=== PATIENT | male | born 1965 | race Caucasian/White ===

== ENCOUNTER 2025-03-06 12:55 | Inpatient (IN) | payer OTHER ==
[2025-03-06] MEDS ORDERED: VANCOMYCIN IV PER PHARMACY 1 EACH MISC MISCELLANE PRN (13:14)
--- NOTE | 2025-03-06 13:18 | ED ---
Skin/Abscess/FB HPI - General Chief complaint: Skin/Abscess/Foreign Body Stated complaint: L leg pain Time Seen by Provider: 03/06/25 13:09 Source: patient, RN notes reviewed Mode of arrival: ambulatory Limitations: no limitations - History of Present Illness Initial comments: 59-year-old male presents emergency department complaint of left leg infection. Patient states that started several weeks ago after a fall. Patient states that he had abrasion hematoma and negative x-rays at that time. Patient states he saw his worsen which he was recently placed on antibiotics and symptoms remained to get worse. He states he is a large area of swelling, bogginess states is uncomfortable and generalized does not feel well. Patient states there has been puslike drainage - Related Data Allergies Allergy/AdvReac Type Severity Reaction Status Date / Time No Known Allergies Allergy Verified 03/06/25 13:08 Review of Systems ROS Statement: Those systems with pertinent positive or pertinent negative responses have been documented in the HPI. ROS Other: All systems not noted in ROS Statement are negative. Past Medical History Past Medical History: No Reported History Past Surgical History: No Surgical Hx Reported Smoking Status: Never smoker Past Alcohol Use History: None Reported Past Drug Use History: None Reported General Exam Limitations: no limitations General appearance: alert, in no apparent distress Head exam: Present: atraumatic, normocephalic, normal inspection Eye exam: Present: normal appearance, PERRL, EOMI. Absent: scleral icterus, conjunctival injection, periorbital swelling ENT exam: Present: normal exam, normal oropharynx, mucous membranes moist Neck exam: Present: normal inspection, full ROM. Absent: tenderness, meningismus, lymphadenopathy Respiratory exam: Present: normal lung sounds bilaterally. Absent: respiratory distress, wheezes, rales, rhonchi, stridor Cardiovascular Exam: Present: regular rate, normal rhythm, normal heart sounds. Absent: systolic murmur, diastolic murmur, rubs, gallop, clicks Extremities exam: Present: other (Left anterior mcelroy region there is a large 6 cm abscess with surrounding erythema encompassing most of the tib-fib region there is tenderness with palpation neurovascular intact) Neurological exam: Present: alert Skin exam: Present: warm, dry, intact, normal color. Absent: rash Course Vital Signs 03/06/25 13:02 Temperature 98.2 F Pulse Rate 93 Respiratory 17 Rate Blood Pressure 154/92 O2 Sat by Pulse 97 Oximetry Medical Decision Making - Medical Decision Making Was pt. sent in by a medical professional or institution (MEENA Ewing, BOX PRINTING MACHINE OPERATOR, urgent care, hospital, or fpc...) When possible be specific @ -Urgent care Did you speak to anyone other than the patient for history (EMS, parent, family, police, friend...)? What history was obtained from this source @ -No Did you review nursing and triage notes (agree or disagree)? Why? @ -I reviewed and agree with nursing and triage notes Were old charts reviewed (outside hosp., previous admission, EMS record, old EKG, old radiological studies, urgent care reports/EKG's, fpc records)? Report findings @ -No old charts were reviewed Differential Diagnosis (chest pain, altered mental status, abdominal pain women, abdominal pain men, vaginal bleeding, weakness, fever, dyspnea, syncope, headache, dizziness, GI bleed, back pain, seizure, CVA, palpatations, mental health, musculoskeletal)? @ -Cellulitis, abscess, EKG interpreted by me (3pts min.). @ -None X-rays interpreted by me (1pt min.). @ -X-ray left tib-fib showing soft tissue swelling CT interpreted by me (1pt min.). @ -None done U/S interpreted by me (1pt. min.). @ -None done What testing was considered but not performed or refused? (CT, X-rays, U/S, labs)? Why? @ -None What meds were considered but not given or refused? Why? @ -None Did you discuss the management of the patient with other professionals (professionals i.e. , MEENA, BOX PRINTING MACHINE OPERATOR, lab, RT, psych nurse, psychiatric social worker, online activist, teacher, precinct commanding officer, medical case worker)? Give summary @ -Dr. Ramon for admission Was smoking cessation discussed for >3mins.? @ -No Was critical care preformed (if so, how long)? @ -No Were there social determinants of health that impacted care today? How? (Homelessness, low income, unemployed, alcoholism, drug addiction, transportation, low edu. Level, literacy, decrease access to med. care, group home, rehab)? @ -No Was there de-escalation of care discussed even if they declined (Discuss DNR or withdrawal of care, Hospice)? DNR status @ -No What co-morbidities impacted this encounter? (DM, HTN, Smoking, COPD, CAD, Cancer, CVA, ARF, Chemo, Hep., AIDS, mental health diagnosis, sleep apnea, m orbid obesity)? @ -None Was patient admitted / discharged? Hospital course, mention meds given and r oute, prescriptions, significant lab abnormalities, going to OR and other pertinent info. @ -Admitted patient has significant abscess, cellulitis patient started on dual antibiotic therapy will have general surgery for drainage. Undiagnosed new problem with uncertain prognosis? @ -No Drug Therapy requiring intensive monitoring for toxicity (Heparin, Nitro, Insulin, Cardizem)? @ -No Were any procedures done? @ -No Diagnosis/symptom? @ -Left leg cellulitis, abscess Acute, or Chronic, or Acute on Chronic? @ -Acute Uncomplicated (without systemic symptoms) or Complicated (systemic symptoms)? @ -Complicated Side effects of treatment? @ -No Exacerbation, Progression, or Severe Exacerbation? @ -No Poses a threat to life or bodily function? How? (Chest pain, [place], [place], pneumonia, PE, COPD, DKA, ARF, appy, cholecystitis, CVA, Diverticulitis, Homicidal, Suicidal, threat to staff... and all critical care pts) @ -No - Lab Data Result diagrams: 03/06/25 13:28 03/06/25 13:28 Lab Results 03/06/25 03/06/25 03/06/25 Range/Units 13:28 13:28 13:28 WBC 9.21 (4.50-10.00) 10*3/uL RBC 5.36 (4.40-5.60) 10*6/uL Hgb 14.0 (13.0-17.0) g/dL Hct 42.5 (39.6-50.0) % MCV 79.3 L (80.0-97.0) fL MCH 26.1 L (27.0-32.0) pg MCHC 32.9 (32.0-37.0) g/dL Plt Count 296 (140-440) 10*3/uL MPV 8.2 L (9.5-12.2) fL Immature Gran % (Auto) 0.9 % Neutrophils % 81.3 % Lymphocytes % 10.5 % Monocytes % 5.6 % Eosinophils % 1.4 % Basophils % 0.3 % Immature Gran # 0.08 H (0.00-0.04) 10*3/uL Neutrophils # 7.48 (1.80-7.70) 10*3/uL Lymphocytes # 0.97 (0.90-5.00) 10*3/uL Monocytes # 0.52 (0.20-1.00) 10*3/uL Eosinophils # 0.13 (0.04-0.35) 10*3/uL Basophils # 0.03 (0.00-0.10) 10*3/uL Sodium 137 (137-145) mmol/L Potassium 3.7 (3.5-5.1) mmol/L Chloride 98 (98-107) mmol/L Carbon Dioxide 24 (22-30) mmol/L Anion Gap 15 mmol/L BUN 15 (9-20) mg/dL Creatinine 0.67 (0.66-1.25) mg/dL Est GFR (CKD-EPI)AfAm >90 (>60 ml/min/1.73 sqM) Est GFR (CKD-EPI)NonAf >90 (>60 ml/min/1.73 sqM) Glucose 158 H (74-99) mg/dL Plasma Lactic Acid Drew 2.0 (0.7-2.0) mmol/L Calcium 9.3 (8.4-10.2) mg/dL Total Bilirubin 1.1 (0.2-1.3) mg/dL AST 135 H (17-59) U/L ALT 244 H (4-49) U/L Alkaline Phosphatase 342 H (38-126) U/L C-Reactive Protein 16.0 H (<1.0) mg/dL Total Protein 7.2 (6.3-8.2) g/dL Albumin 4.1 (3.5-5.0) g/dL Disposition Clinical Impression: Left leg cellulitis, Abscess of leg Disposition: ADMITTED IP TO THIS HOSP Condition: Fair Referrals: None,Stated [REFERRING] - 1-2 days Time of Disposition: 14:48
[2025-03-06 13:36] LABS: Basophils # (A) 0.03 10*3/uL (0.00-0.10); Basophils % (A) 0.3 %; Eosinophils # (A) 0.13 10*3/uL (0.04-0.35); Eosinophils % (A) 1.4 %; HCT 42.5 % (39.6-50.0); Lymphocytes # (A) 0.97 10*3/uL (0.90-5.00); Lymphocytes % (A) 10.5 %; MCH 26.1 pg (27.0-32.0); MCHC 32.9 g/dL (32.0-37.0); MCV 79.3 fL (80.0-97.0); Mean Platelet Volume 8.2 fL (9.5-12.2); Monocytes # (A) 0.52 10*3/uL (0.20-1.00); Monocytes % (A) 5.6 %; Neutrophils # (A) 7.48 10*3/uL (1.80-7.70); Neutrophils % (A) 81.3 %; Platelet Count 296 10*3/uL (140-440); RBC 5.36 10*6/uL (4.40-5.60); RDW 13.6 % (11.5-14.5); WBC 9.21 10*3/uL (4.50-10.00)
[2025-03-06 13:49] LABS: ALT 244 U/L (4-49); AST 135 U/L (17-59); African American GFR (CKD) >90 (>60 ml/min/1.73 sqM); Albumin 4.1 g/dL (3.5-5.0); Alkaline Phosphatase 342 U/L (38-126); Anion Gap 15 mmol/L; Blood Urea Nitrogen 15 mg/dL (9-20); Calcium 9.3 mg/dL (8.4-10.2); Carbon Dioxide 24 mmol/L (22-30); Chloride 98 mmol/L (98-107); Glucose 158 mg/dL (74-99); Non-African American GFR(CKD) >90 (>60 ml/min/1.73 sqM); Potassium 3.7 mmol/L (3.5-5.1); Sodium 137 mmol/L (137-145); Total Bilirubin 1.1 mg/dL (0.2-1.3); Total Protein 7.2 g/dL (6.3-8.2)
--- NOTE | 2025-03-06 13:56 | XR ---
EXAMINATION TYPE: XR tibia fibula LT DATE OF EXAM: 03/06/2025 1:49 PM COMPARISON: None. CLINICAL INDICATION: Male, 59 years old with history of infection, pain TECHNIQUE: 2 view(s) obtained. FINDINGS: Knee joint space is preserved. No acute fracture or dislocation is evident. Ankle appears normal. The re is soft tissue swelling over the mid anterior foreleg. No suspicious cortical erosions evident to suggest underlying osteomyelitis. Three-phase bone scan can be performed for sufficient clinical susp icion. IMPRESSION: 1. No acute osseous abnormality. 2. Superficial soft tissue swelling anterior mid foreleg [facility], , 03/06/2025 1:54 PM
[2025-03-06] MEDS: VANCOMYCIN 1,750 MG in SODIUM CHLORIDE 0.9% 500 ML 500 ML IVPB STA (14:11)
[2025-03-06] MEDS ORDERED: NALOXONE 0.4 MG/ML 1 ML VIAL IV PRN (14:46)
[2025-03-06] MEDS ORDERED: ONDANSETRON 4 MG/2 ML VIAL IVP PRN (14:46)
--- NOTE | 2025-03-06 16:35 | P.HPIM ---
History of Present Illness H&P Date: 03/06/25 Chief Complaint: Left leg infection Patient is a 59 year old male with no significant past medical history presented to the ED with concern for left leg infection. Patient stated that his symptoms started 2 months ago after sustaining a mechanical fall. He fell over metal pi eces. He initially had an abrasion hematoma and negative x-rays at the time. He reports the size of his lesion gradually increased. He he then saw worsening of his symptoms with fluid filled blisters and was placed on topical antibiotics recently. At the time he was also diagnosed with pneumonia as well as ear infection. He was placed on amoxicillin. His leg was wrapped. Today when the wrap was removed he noticed the swelling and bogginess. Associated with that he has puslike drainage. He reports ear ache is better, but is still producing greenish sputum along with coughing. Denies fever, chills, shortness of breath, chest pain, palpitations, abdominal pain, nausea, vomiting, hematuria, dysuria, hematochezia, melena, headache, slurred speech, numbness, tingling, dizziness, lightheadedness, blurred vision, double vision. ED documentation reviewed. In the ED patient was treated with Vancomycin. Vitals on admission T 98.2 F, OH 93 bpm, RR 17, BP 154/92, SpO2 97% on room air Tibia-fibula x-ray shows no acute osseous abnormality, superficial soft tissue swelling anterior mid foreleg Labs on admission show WBC 9.1, hemoglobin 14.0, platelet count 296, sodium 137, potassium 3.7, creatinine 0.67, glucose 158, AST 135, ALT 244, ALP 342, CRP 16 Review of systems: Pertinent positives and negatives as discussed in HPI, a complete review of systems was performed and all other systems are negative Physical examination: Vital signs reviewed General: nontoxic, no distress, appears at stated age Head: atraumatic, normocephalic, symmetric Eyes: EOMI, anicteric sclera Mouth: no lip lesion, mucus membranes moist Cardiovascular: S1 S2 reg, no murmur Lungs: CTA bilateral, no rhonchi, no rales, no accessory muscle use Abdominal: soft, non-tender to palpation Extremities: large 6 cm swelling on left mcelroy with surrounding erythema encompassing most left lower leg, warm to touch Neuro: Alert, Oriented, Gross neurological examination did not reveal any focal deficits. Psych: well appearing, appropriate affect Assessment/Plan: Patient is a 59 year old male with no significant past medical history presented to the ED with concern for left leg infection. Patient admitted to internal medicine service. Active: #. Left lower extremity cellulitis Tibia-fibula x-ray shows no acute osseous abnormality, superficial soft tissue swelling anterior mid foreleg CRP 16 Received Vancomycin once in the ED Continue Vancomycin and Start Unasyn Monitor for renal toxicity, Monitor BMP Discontinue Zosyn Obtain blood culture, CT scan of left lower extremity General surgery consulted #. Community acquired pneumonia Obtain chest Xray and respiratory panel Patient already on antibiotics Vancomycin and Zosyn for cellulitis Monitor vital signs #. Transaminitis AST 135, ALT 244, ALP 342 Obtain Liver ultrsound Monitor CMP F: None E: Replete as required N: Regular diet A: Ambulatory DVT prophylaxis: Lovenox 40 mg SQ daily The patient is admitted as observation with an anticipated less than 2 midnight stay for evaluation of left leg swelling CODE STATUS: Full code Discussed with: Patient Anticipated discharge place: Pending clinical course Dictation was produced using [employer] dictation software. please excuse any grammatical, word or spelling errors. Magdy Ramos MD PGY-1 IM I have seen and evaluated the patient today. Discussed with the resident and agree with the residents finding and plan as documented in the resident's note. Changes highlighted in blue font. Past Medical History Past Medical History: No Reported History Past Surgical History: No Surgical Hx Reported Smoking Status: Never smoker Past Alcohol Use History: None Reported Past Drug Use History: None Reported Medications and Allergies Home Medications Medication Instructions Recorded Confirmed Type No Known Home Medications 03/06/25 03/06/25 History Allergies Allergy/AdvReac Type Severity Reaction Status Date / Time No Known Allergies Allergy Verified 03/06/25 16:39 Physical Exam Vitals: Vital Signs Temp Pulse Resp BP Pulse Ox 03/06/25 13:02 98.2 F 93 17 154/92 97 Intake and Output 03/06/25 03/06/25 03/06/25 06:59 14:59 22:59 Other: Weight 104.326 kg Results CBC & Chem 7: 03/06/25 13:28 03/06/25 13:28 Labs: Abnormal Lab Results - Last 24 Hours (Table) 06/09/25 06/09/25 Range/Units 13:28 13:28 MCV 79.3 L (80.0-97.0) fL MCH 26.1 L (27.0-32.0) pg MPV 8.2 L (9.5-12.2) fL Immature Gran # 0.08 H (0.00-0.04) 10*3/uL Glucose 158 H (74-99) mg/dL AST 135 H (17-59) U/L ALT 244 H (4-49) U/L Alkaline Phosphatase 342 H (38-126) U/L C-Reactive Protein 16.0 H (<1.0) mg/dL
[2025-03-06] MEDS: PIPERACILLIN-TAZOBACTAM 3.375 GM in SODIUM CHLORIDE 0.9% 100 ML IVPB SCH (17:11)
--- NOTE | 2025-03-06 17:45 | CT ---
EXAMINATION TYPE: CT lower extremity LT w con DATE OF EXAM: 03/06/2025 4:58 PM COMPARISON: None. CLINICAL INDICATION: Male, 59 years old with history of abscess?, Left leg redness and swelling, Inju ry on 12/24/24 TECHNIQUE: Contrast used:100 mL of Isovue 300 with IV Contrast, (none if empty) Oral contrast used: (none if empty) Axial images at 3 mm thick sections. Reconstructed images in the coronal and sagittal planes. 3-D re constructive images have been performed. FINDINGS: No acute fracture or dislocation evident. No joint effusion is evident. There is soft tissue swelling over the anterior pretibial space. There may be an underlying hematoma present measuring 2.2 x 5.3 c m. No underlying cortical erosion is evident. No fractures are evident. No joint effusion at the knee is evident. Joint spaces appear preserved. Three-D reconstructed images are reviewed on the computer performed on a separate computer by the javier hnologist. IMPRESSION: 1. SUPERFICIAL SOFT TISSUE SWELLING PRETIBIAL SPACE. A 2 X 5 CM HEMATOMA MAY CONTRIBUTE TO THIS SWELL ING. ABSCESS CAN BE CONSIDERED. 2. NO SUSPICIOUS CORTICAL EROSION TO SUGGEST OSTEOMYELITIS. [facility], , 03/06/2025 5:42 PM
[2025-03-06 18:47] LABS: Influenza A Not Detected (Not Detectd); Influenza B Not Detected (Not Detectd); RSV Not Detected (Not Detectd)
[2025-03-06] MEDS: VANCOMYCIN 1,750 MG in SODIUM CHLORIDE 0.9% 500 ML 500 ML IVPB SCH (21:43)
[2025-03-07] MEDS: ACETAMINOPHEN TAB 325 MG TAB PO PRN (00:24)
[2025-03-07] MEDS: AMPICILLIN-SULBACTAM 3 GM in SODIUM CHLORIDE 0.9% 100 ML IVPB SCH (00:58)
[2025-03-07 04:33] LABS: HCT 38.4 % (39.6-50.0); HGB 12.3 g/dL (13.0-17.0); MCH 25.6 pg (27.0-32.0); MCV 79.8 fL (80.0-97.0); Mean Platelet Volume 8.5 fL (9.5-12.2); Platelet Count 297 10*3/uL (140-440); RBC 4.81 10*6/uL (4.40-5.60); RDW 13.7 % (11.5-14.5); WBC 9.68 10*3/uL (4.50-10.00)
[2025-03-07 04:45] LABS: ALT 234 U/L (4-49); AST 112 U/L (17-59); African American GFR (CKD) >90 (>60 ml/min/1.73 sqM); Albumin 3.4 g/dL (3.5-5.0); Albumin/Globulin Ratio 1.2; Alkaline Phosphatase 349 U/L (38-126); Anion Gap 10 mmol/L; Blood Urea Nitrogen 13 mg/dL (9-20); Calcium 8.6 mg/dL (8.4-10.2); Carbon Dioxide 26 mmol/L (22-30); Chloride 99 mmol/L (98-107); Globulin 2.9 g/dL; Glucose 92 mg/dL (74-99); Non-African American GFR(CKD) >90 (>60 ml/min/1.73 sqM); Potassium 3.7 mmol/L (3.5-5.1); Sodium 135 mmol/L (137-145); Total Bilirubin 0.9 mg/dL (0.2-1.3); Total Protein 6.3 g/dL (6.3-8.2)
--- NOTE | 2025-03-07 07:01 | XR ---
EXAMINATION TYPE: XR chest 2V DATE OF EXAM: 03/07/2025 6:42 AM COMPARISON: None. CLINICAL INDICATION: Male, 59 years old with history of productive cough, TECHNIQUE: XR chest 2V view(s) obtained. FINDINGS: The heart size is normal. The pulmonary vasculature is normal. The lungs are clear. IMPRESSION: 1. No acute pulmonary process. [facility], , 03/07/2025 6:59 AM
--- NOTE | 2025-03-07 08:01 | US ---
EXAMINATION TYPE: US liver DATE OF EXAM: 03/07/2025 COMPARISON: NONE CLINICAL INDICATION: Male, 59 years old with history of transaminitis; Transaminitis TECHNIQUE: Grayscale and color Doppler imaging of the right upper quadrant was performed. FINDINGS: EXAM MEASUREMENTS: Liver Length: 17.5 cm Gallbladder Wall: .2 cm CBD: .5 cm Right Kidney: 11.2 x 5.1 x 5.6 cm URGENT CARE PHYSICIAN NOTES: Pancreas: Tail obscured by overlying bowel gas Liver: Mildly enlarged Gallbladder: stones visualized Evidence for sonographic Kendall's sign: No CBD: wnl Right Kidney: No hydronephrosis or masses seen IMPRESSION: 1. Cholelithiasis. 2. Hepatomegaly [facility], , 03/07/2025 7:59 AM
[2025-03-07] MEDS: ENOXAPARIN 40 MG/0.4 ML SYRINGE SQ SCH (09:26)
--- NOTE | 2025-03-07 11:35 | P.PN ---
Subjective Progress Note Date: 03/07/25 Principal diagnosis: Hospital course: Patient is a 59 year old male with no significant past medical history presented to the ED with concern for left leg infection. Patient stated that his symptoms started 2 months ago after sustaining a mechanical fall. He fell over metal pieces. He initially had an abrasion hematoma and negative x-rays at the time. He reports the size of his lesion gradually increased. He he then saw worsening of his symptoms with fluid filled blisters and was placed on topical antibiotics recently. At the time he was also diagnosed with pneumonia as well as ear infection. He was placed on amoxicillin. His leg was wrapped. Today when the wrap was removed he noticed the swelling and bogginess. Associated with that he has puslike drainage. He reports ear ache is better, but is still producing greenish sputum along with coughing. Denies fever, chills, shortness of breath, chest pain, palpitations, abdominal pain, nausea, vomiting, hematuria, dysuria, hematochezia, melena, headache, slurred speech, numbness, tingling, dizziness, lightheadedness, blurred vision, double vision. ED documentation reviewed. In the ED patient was treated with Vancomycin. 03/07/25: Patient is seen and examined at today. He was on the chair by his bed. He denies shortness of breath, pain on the left leg. Review of systems: Pertinent positives and negatives as discussed in HPI, a complete review of systems was performed and all other systems are negative. Vitals: Signs Reviewed Physical examination: General: nontoxic, no distress, appears at stated age Head: atraumatic, normocephalic, symmetric Eyes: EOMI, anicteric sclera Mouth: no lip lesion, mucus membranes moist Cardiovascular: S1 S2 reg, no murmur Lungs: rhonchi bilaterally, no accessory muscle use Abdominal: soft, non-tender to palpation Extremities: large 6 cm swelling on left mcelroy with surrounding erythema encom passing most left lower leg, warm to touch, left lower leg now bandaged Neuro: Alert, Oriented, Gross neurological examination did not reveal any focal deficits. Psych: well appearing, appropriate affect Data Reviewed Today: Labs: Hemoglobin 12.3, MCV 79.8, sodium 135, AST 112, ALT 234, ALP 349 Respiratory panel is negative Imaging: CT scan of the lower extremity with contrast showed superficial soft tissue swelling pretibial space, 2 x 5 cm hematoma may contribute to the swelling, abscess can be considered, no suspicious cortical erosion to suggest osteomyelitis Chest x-ray shows no acute pulmonary process Liver ultrasound shows cholelithiasis, hepatomegaly, CBD within normal limits Assessment/Plan: Patient is a 59 year old male with no significant past medical history presented to the ED with concern for left leg infection. Patient admitted for left lower extremity cellulitis and abscess formation in hematoma and underwent incision and drainage. Active: #. Left lower extremity cellulitis #. Abscess formation in hematoma #. S/p Incision and drainage Tibia-fibula x-ray shows no acute osseous abnormality, superficial soft tissue swelling anterior mid foreleg CRP 16 CT scan of the lower extremity with contrast showed superficial soft tissue swelling pretibial space, 2 x 5 cm hematoma may contribute to the swelling, abscess can be considered, no suspicious cortical erosion to suggest osteomyelitis Incision & Drainage today, cultures obtained Received Vancomycin once in the ED Continue Vancomycin and Start Unasyn Monitor for renal toxicity, Monitor BMP Discontinue Zosyn Pending blood culture General surgery is following, recommended Incision and drainage #. Recent Community acquired pneumonia Chest x-ray shows no acute pulmonary process Respiratory panel is negative Patient already on antibiotics Vancomycin and Zosyn for cellulitis Monitor vital signs #. Transaminitis AST 135, ALT 244, ALP 342 Liver ultrasound shows cholelithiasis, hepatomegaly, CBD within normal limits Monitor CMP F: None E: Replete as required N: Regular diet A: Ambulatory DVT prophylaxis: Lovenox 40 mg SQ daily Code status: FULL CODE Anticipated discharge place: Pending clinical course Anticipated discharge time: Pending clinical course Dictation was produced using [employer] dictation software. please excuse any grammatical, word or spelling errors. Magdy Ramos MD PGY-1 IM I have seen and evaluated the patient today. Discussed with the resident and agree with the residents finding and plan as documented in the resident's note. Changes highlighted in blue font. Objective - Vital Signs Vital signs: Vital Signs Temp 98.6 F 03/07/25 07:45 Pulse 84 03/07/25 07:45 Resp 16 03/07/25 07:45 BP 150/83 03/07/25 07:45 Pulse Ox 97 03/07/25 07:45 FiO2 Intake & Output 03/06/25 03/07/25 03/07/25 18:59 06:59 18:59 Weight 104.326 kg Other: Voiding Method Toilet # Voids 6 - Labs CBC & Chem 7: 03/07/25 03:18 03/07/25 03:18 Labs: Abnormal Lab Results - Last 24 Hours (Table) 03/06/25 03/06/25 03/07/25 Range/Units 13:28 13:28 03:18 Hgb 12.3 L (13.0-17.0) g/dL Hct 38.4 L (39.6-50.0) % MCV 79.3 L 79.8 L (80.0-97.0) fL MCH 26.1 L 25.6 L (27.0-32.0) pg MPV 8.2 L 8.5 L (9.5-12.2) fL Immature Gran # 0.08 H (0.00-0.04) 10*3/uL Sodium (137-145) mmol/L Glucose 158 H (74-99) mg/dL AST 135 H (17-59) U/L ALT 244 H (4-49) U/L Alkaline Phosphatase 342 H (38-126) U/L C-Reactive Protein 16.0 H (<1.0) mg/dL Albumin (3.5-5.0) g/dL 03/07/25 Range/Units 03:18 Hgb (13.0-17.0) g/dL Hct (39.6-50.0) % MCV (80.0-97.0) fL MCH (27.0-32.0) pg MPV (9.5-12.2) fL Immature Gran # (0.00-0.04) 10*3/uL Sodium 135 L (137-145) mmol/L Glucose (74-99) mg/dL AST 112 H (17-59) U/L ALT 234 H (4-49) U/L Alkaline Phosphatase 349 H (38-126) U/L C-Reactive Protein (<1.0) mg/dL Albumin 3.4 L (3.5-5.0) g/dL
--- NOTE | 2025-03-07 12:37 | P.GSCN ---
History of Present Illness Consult date: 03/07/25 History of present illness: CHIEF COMPLAINT: Left leg abscess HISTORY OF PRESENT ILLNESS: This is a 59-year-old male with a left leg abscess. Patient reports falling 2 weeks ago where he hit his left hip mcelroy bone on a piece of metal in his yard. He reports that it did not puncture the skin. He then went to the ER and had imaging completed and was sent home with a ntibiotics. Patient reports that initially there was some improvement but then he started to feel ill and had worsening redness and swelling of the left leg. He did have a low-grade temps of 100.3. He had a CT scan of the left leg that reported superficial soft tissue swelling pretibial with a 2 x 5 cm hematoma and consider an abscess. He is on IV antibiotics. Surgical service consulted for p ossible abscess. Patient denies any history of MRSA or history of diabetes. Patient does report having a recent tetanus shot. PAST MEDICAL HISTORY: See below PAST SURGICAL HISTORY: See below MEDICATIONS: See below ALLERGIES: See below SOCIAL HISTORY: No illicit drug use. REVIEW OF SYSTEMS: CONSTITUTIONAL: Denies fever or chills. HEENT: Denies blurred vision, vision changes, or eye pain. Denies hemoptysis CARDIOVASCULAR: Denies chest pain or pressure. RESPIRATORY: No shortness of breath. GASTROINTESTINAL: See HPI for pertinent findings HEMATOLOGIC: Denies bleeding disorders. GENITOURINARY: Denies any blood in urine or increased urinary frequency. SKIN: Denies pruitis. Denies rash. PHYSICAL EXAM: VITAL SIGNS: Reviewed GENERAL: Well-developed in no acute distress. HEENT: No sclera icterus. Extraocular movements grossly intact. Moist buccal mucosa. Head is atraumatic, normocephalic. No nasal drainage. ABDOMEN: Soft. Nondistended. Nontender NEUROLOGIC: Alert and oriented. Cranial nerves II through XII grossly intact. Extremities: Left lower leg anteriorly with significant erythema from the knee to the ankle significant swelling induration and fluctuance noted at the tibial area. Tender with palpation. There is purulent drainage noted. Able to express a significant amount of purulent drainage LABORATORY DATA: WBC 9.68 Hgb 12.3 platelets 297 Sodium 135 potassium 3.7 creatinine 0.85 Total bilirubin 0.9 AST 112 ALT 34 alk phos 349 IMAGING: CT reports superficial soft tissue swelling pretibial space. 2 x 5 cm hematoma may contribute to the swelling. Abscess can be considered. No suspicious cortical erosion to suggest osteomyelitis. ASSESSMENT: 1. Left lower leg infected hematoma PLAN: - Dr. Tinoco completed bedside incision and drainage of left lower leg infected hematoma - Continue antibiotics - Culture obtained - Continue supportive care Physician Staff Development Manager note has been reviewed by physician. Signing provider agrees with the documented findings, assessment, and plan of care. Past Medical History Past Medical History: No Reported History History of Any Multi-Drug Resistant Organisms: None Reported Past Surgical History: No Surgical Hx Reported Past Anesthesia/Blood Transfusion Reactions: No Reported Reaction Past Psychological History: No Psychological Hx Reported Smoking Status: Never smoker Past Alcohol Use History: None Reported Past Drug Use History: None Reported Medications and Allergies Home Medications Medication Instructions Recorded Confirmed Type No Known Home Medications 03/06/25 03/06/25 History Allergies Allergy/AdvReac Type Severity Reaction Status Date / Time No Known Allergies Allergy Verified 03/06/25 16:39 Surgical - Exam Vital Signs Temp Pulse Resp BP Pulse Ox 98.2 F 93 17 154/92 97 03/06/25 13:02 03/06/25 13:02 03/06/25 13:02 03/06/25 13:02 03/06/25 13:02 Results - Labs 03/07/25 03:18 03/07/25 03:18 Abnormal Lab Results - Last 24 Hours (Table) 03/06/25 03/06/25 03/07/25 Range/Units 13:28 13:28 03:18 Hgb 12.3 L (13.0-17.0) g/dL Hct 38.4 L (39.6-50.0) % MCV 79.3 L 79.8 L (80.0-97.0) fL MCH 26.1 L 25.6 L (27.0-32.0) pg MPV 8.2 L 8.5 L (9.5-12.2) fL Immature Gran # 0.08 H (0.00-0.04) 10*3/uL Sodium (137-145) mmol/L Glucose 158 H (74-99) mg/dL AST 135 H (17-59) U/L ALT 244 H (4-49) U/L Alkaline Phosphatase 342 H (38-126) U/L C-Reactive Protein 16.0 H (<1.0) mg/dL Albumin (3.5-5.0) g/dL 03/07/25 Range/Units 03:18 Hgb (13.0-17.0) g/dL Hct (39.6-50.0) % MCV (80.0-97.0) fL MCH (27.0-32.0) pg MPV (9.5-12.2) fL Immature Gran # (0.00-0.04) 10*3/uL Sodium 135 L (137-145) mmol/L Glucose (74-99) mg/dL AST 112 H (17-59) U/L ALT 234 H (4-49) U/L Alkaline Phosphatase 349 H (38-126) U/L C-Reactive Protein (<1.0) mg/dL Albumin 3.4 L (3.5-5.0) g/dL Diabetes panel 03/06/25 03/07/25 Range/Units 13:28 03:18 Sodium 137 135 L (137-145) mmol/L Potassium 3.7 3.7 (3.5-5.1) mmol/L Chloride 98 99 (98-107) mmol/L Carbon Dioxide 24 26 (22-30) mmol/L BUN 15 13 (9-20) mg/dL Creatinine 0.67 0.85 (0.66-1.25) mg/dL Glucose 158 H 92 (74-99) mg/dL Calcium 9.3 8.6 (8.4-10.2) mg/dL AST 135 H 112 H (17-59) U/L ALT 244 H 234 H (4-49) U/L Alkaline Phosphatase 342 H 349 H (38-126) U/L Total Protein 7.2 6.3 (6.3-8.2) g/dL Albumin 4.1 3.4 L (3.5-5.0) g/dL Calcium panel 03/06/25 03/07/25 Range/Units 13:28 03:18 Calcium 9.3 8.6 (8.4-10.2) mg/dL Albumin 4.1 3.4 L (3.5-5.0) g/dL Pituitary panel 03/06/25 03/07/25 Range/Units 13:28 03:18 Sodium 137 135 L (137-145) mmol/L Potassium 3.7 3.7 (3.5-5.1) mmol/L Chloride 98 99 (98-107) mmol/L Carbon Dioxide 24 26 (22-30) mmol/L BUN 15 13 (9-20) mg/dL Creatinine 0.67 0.85 (0.66-1.25) mg/dL Glucose 158 H 92 (74-99) mg/dL Calcium 9.3 8.6 (8.4-10.2) mg/dL Adrenal panel 03/06/25 03/07/25 Range/Units 13:28 03:18 Sodium 137 135 L (137-145) mmol/L Potassium 3.7 3.7 (3.5-5.1) mmol/L Chloride 98 99 (98-107) mmol/L Carbon Dioxide 24 26 (22-30) mmol/L BUN 15 13 (9-20) mg/dL Creatinine 0.67 0.85 (0.66-1.25) mg/dL Glucose 158 H 92 (74-99) mg/dL Calcium 9.3 8.6 (8.4-10.2) mg/dL Total Bilirubin 1.1 0.9 (0.2-1.3) mg/dL AST 135 H 112 H (17-59) U/L ALT 244 H 234 H (4-49) U/L Alkaline Phosphatase 342 H 349 H (38-126) U/L Total Protein 7.2 6.3 (6.3-8.2) g/dL Albumin 4.1 3.4 L (3.5-5.0) g/dL
[2025-03-08] MEDS: VANCOMYCIN TROUGH DUE 1 EACH MISC MISCELLANE ONE (06:08)
[2025-03-08 06:33] LABS: HCT 37.8 % (39.6-50.0); HGB 12.3 g/dL (13.0-17.0); MCH 26.1 pg (27.0-32.0); MCHC 32.5 g/dL (32.0-37.0); MCV 80.1 fL (80.0-97.0); Mean Platelet Volume 7.9 fL (9.5-12.2); Platelet Count 300 10*3/uL (140-440); RBC 4.72 10*6/uL (4.40-5.60); RDW 13.8 % (11.5-14.5); WBC 7.49 10*3/uL (4.50-10.00)
[2025-03-08 06:47] LABS: ALT 239 U/L (4-49); AST 116 U/L (17-59); African American GFR (CKD) >90 (>60 ml/min/1.73 sqM); Albumin 3.3 g/dL (3.5-5.0); Albumin/Globulin Ratio 1.1; Alkaline Phosphatase 327 U/L (38-126); Anion Gap 8 mmol/L; Blood Urea Nitrogen 12 mg/dL (9-20); Calcium 8.6 mg/dL (8.4-10.2); Carbon Dioxide 27 mmol/L (22-30); Chloride 103 mmol/L (98-107); Globulin 2.9 g/dL; Glucose 115 mg/dL (74-99); Non-African American GFR(CKD) >90 (>60 ml/min/1.73 sqM); Potassium 4.3 mmol/L (3.5-5.1); Sodium 138 mmol/L (137-145); Total Bilirubin 0.5 mg/dL (0.2-1.3); Total Protein 6.2 g/dL (6.3-8.2)
--- NOTE | 2025-03-08 10:54 | P.PN ---
Subjective Progress Note Date: 03/08/25 Principal diagnosis: Hospital course: Patient is a 59 year old male with no significant past medical history presented to the ED with concern for left leg infection. Patient stated that his symptoms started 2 months ago after sustaining a mechanical fall. He fell over metal pieces. He initially had an abrasion hematoma and negative x-rays at the time. He reports the size of his lesion gradually increased. He he then saw worsening of his symptoms with fluid filled blisters and was placed on topical antibiotics recently. At the time he was also diagnosed with pneumonia as well as ear infection. He was placed on amoxicillin. His leg was wrapped. Today when the wrap was removed he noticed the swelling and bogginess. Associated with that he has puslike drainage. He reports ear ache is better, but is still producing greenish sputum along with coughing. Denies fever, chills, shortness of breath, chest pain, palpitations, abdominal pain, nausea, vomiting, hematuria, dysuria, hematochezia, melena, headache, slurred speech, numbness, tingling, dizziness, lightheadedness, blurred vision, double vision. ED documentation reviewed. In the ED patient was treated with Vancomycin. 03/07/25: Patient is seen and examined at today. He was on the chair by his bed. He denies shortness of breath, pain on the left leg. 03/08/25: Patient evaluated at bedside. He underwent bedside I & D yesterday. He notes improvement in sputum production today. Denies any new complaints today. Review of systems: Pertinent positives and negatives as discussed in HPI, a complete review of systems was performed and all other systems are negative. Vitals: Signs Reviewed, and stable Physical examination: General: nontoxic, no distress, appears at stated age Head: atraumatic, normocephalic, symmetric Eyes: EOMI, anicteric sclera Mouth: no lip lesion, mucus membranes moist Cardiovascular: S1 S2 reg, no murmur Lungs: rhonchi bilaterally, no accessory muscle use Abdominal: soft, non-tender to palpation Extremities: large 6 cm swelling on left mcelroy with surrounding erythema encompas sing most left lower leg, warm to touch, left lower leg now bandaged Neuro: Alert, Oriented, Gross neurological examination did not reveal any focal deficits. Psych: well appearing, appropriate affect Data Reviewed Today: Labs: Hemoglobin 12.3, MCV 80.1, creatinine 0.77, glucose 115, AST 116, ALT 239, ALP 327 Microbio: Blood culture shows no growth after 24 hours Gram stain showing rare gram-positive cocci Imaging: No new imaging Assessment/Plan: Patient is a 59 year old male with no significant past medical history presented to the ED with concern for left leg infection. Patient admitted for left lower extremity cellulitis and abscess formation in hematoma and underwent incision and drainage. Active: #. Left lower extremity cellulitis #. Abscess formation in hematoma #. S/p Incision and drainage 03/07/25 Tibia-fibula x-ray shows no acute osseous abnormality, superficial soft tissue swelling anterior mid foreleg CRP 16 CT scan of the lower extremity with contrast showed superficial soft tissue swelling pretibial space, 2 x 5 cm hematoma may contribute to the swelling, ab scess can be considered, no suspicious cortical erosion to suggest osteomyelitis Blood culture shows no growth after 24 hours Incision & Drainage 03/07/25, cultures obtained Received Vancomycin once in the ED Continue Vancomycin and Unasyn Monitor for renal toxicity, Monitor BMP Discontinue Zosyn Wait for the cultures to finalize before discharge General surgery is following #. Community acquired pneumonia Chest x-ray shows no acute pulmonary process Respiratory panel is negative Patient already on antibiotics Vancomycin and Zosyn for cellulitis Monitor vital signs #. Transaminitis AST 135, ALT 244, ALP 342 Liver ultrasound shows cholelithiasis, hepatomegaly, CBD within normal limits Patient denies any complaints Monitor CMP F: None E: Replete as required N: Regular diet A: Ambulatory DVT prophylaxis: Lovenox 40 mg SQ daily Code status: FULL CODE Anticipated discharge place: Pending clinical course Anticipated discharge time: Pending clinical course Dictation was produced using [employer] dictation software. please excuse any grammatical, word or spelling errors. Magdy Ramos MD PGY-1 IM I have seen and evaluated the patient today. Discussed with the resident and agree with the residents finding and plan as documented in the resident's note. Changes highlighted in blue font. Objective - Vital Signs Vital signs: Vital Signs Temp 98.4 F 03/08/25 00:35 Pulse 79 03/08/25 00:35 Resp 20 03/08/25 00:35 BP 148/86 03/08/25 00:35 Pulse Ox 97 03/08/25 00:35 FiO2 Intake & Output 03/07/25 03/08/25 03/08/25 18:59 06:59 18:59 Intake Total 200 540 Balance 200 540 Intake: Oral 200 540 Other: Voiding Method Toilet # Voids 3 - Labs CBC & Chem 7: 03/08/25 06:03 03/08/25 06:03 Labs: Abnormal Lab Results - Last 24 Hours (Table) 03/08/25 03/08/25 Range/Units 06:03 06:03 Hgb 12.3 L (13.0-17.0) g/dL Hct 37.8 L (39.6-50.0) % MCH 26.1 L (27.0-32.0) pg MPV 7.9 L (9.5-12.2) fL Glucose 115 H (74-99) mg/dL AST 116 H (17-59) U/L ALT 239 H (4-49) U/L Alkaline Phosphatase 327 H (38-126) U/L Total Protein 6.2 L (6.3-8.2) g/dL Albumin 3.3 L (3.5-5.0) g/dL Microbiology - Last 24 Hours (Table) 03/06/25 13:28 Blood Culture - Preliminary Blood
--- NOTE | 2025-03-08 12:23 | P.PN ---
Subjective Progress Note Date: 03/08/25 SURGICAL PROGRESS NOTE CHIEF COMPLAINT: Left leg infected hematoma HISTORY OF PRESENT ILLNESS: Patient is postop day 1 status post bedside incision and drainage of left leg hematoma. Patient reports improvement in his pain. He does still have leg swelling. The erythema is improving. Afebrile. WBC 7.49. She did have mildly elevated LFTs. Total bilirubin normal at 0.5. Liver ultrasound reported gallstones and hepatomegaly. Patient reports no abdominal pain. Denies any nausea or vomiting. PHYSICAL EXAM: VITAL SIGNS: Reviewed. GENERAL: Well-developed in no acute distress. ABDOMEN: Soft. Nondistended. Nontender. NEUROLOGIC: Alert and oriented. Cranial nerves II through XII grossly intact. Extremities: Left leg decreased erythema. Leg is still swollen. Mild tenderness. Drainage present on dressing ASSESSMENT: 1. Infected left leg hematoma 2. Asymptomatic gallstones PLAN: -Continue antibiotics -Patient to shower and dressing to be reapplied -Follow-up on culture results -DVT prophylaxis Lovenox Physician It Architecture Analyst note has been reviewed by physician. Signing provider agrees with the documented findings, assessment, and plan of care. Objective - Vital Signs Vital signs: Vital Signs Temp 98.2 F 03/08/25 06:45 Pulse 75 03/08/25 09:52 Resp 16 03/08/25 09:52 BP 138/83 03/08/25 06:45 Pulse Ox 96 03/08/25 06:45 FiO2 Intake & Output 03/07/25 03/08/25 03/08/25 18:59 06:59 18:59 Intake Total 200 540 Balance 200 540 Intake: Oral 200 540 Other: Voiding Method Toilet Toilet # Voids 3 - Labs CBC & Chem 7: 03/08/25 06:03 03/08/25 06:03 Labs: Abnormal Lab Results - Last 24 Hours (Table) 03/08/25 03/08/25 Range/Units 06:03 06:03 Hgb 12.3 L (13.0-17.0) g/dL Hct 37.8 L (39.6-50.0) % MCH 26.1 L (27.0-32.0) pg MPV 7.9 L (9.5-12.2) fL Glucose 115 H (74-99) mg/dL AST 116 H (17-59) U/L ALT 239 H (4-49) U/L Alkaline Phosphatase 327 H (38-126) U/L Total Protein 6.2 L (6.3-8.2) g/dL Albumin 3.3 L (3.5-5.0) g/dL Microbiology - Last 24 Hours (Table) 03/07/25 09:15 Gram Stain - Preliminary Leg - Left Wound Culture - Preliminary Presumptive Staph aureus 03/07/25 10:00 Gram Stain - Preliminary Leg - Left Wound Culture - Preliminary 03/06/25 13:28 Blood Culture - Preliminary Blood
[2025-03-08 19:41] VITALS: RESP 18
[2025-03-09] MEDS: VANCOMYCIN 1,500 MG in SODIUM CHLORIDE 0.9% 500 ML 500 ML IVPB SCH (00:55)
[2025-03-09 04:47] LABS: HCT 37.8 % (39.6-50.0); HGB 11.9 g/dL (13.0-17.0); MCH 25.3 pg (27.0-32.0); MCHC 31.5 g/dL (32.0-37.0); MCV 80.3 fL (80.0-97.0); Mean Platelet Volume 8.2 fL (9.5-12.2); Platelet Count 342 10*3/uL (140-440); RBC 4.71 10*6/uL (4.40-5.60); RDW 13.5 % (11.5-14.5); WBC 7.89 10*3/uL (4.50-10.00)
[2025-03-09 06:33] LABS: African American GFR (CKD) >90 (>60 ml/min/1.73 sqM); Anion Gap 10 mmol/L; Blood Urea Nitrogen 11 mg/dL (9-20); Calcium 8.6 mg/dL (8.4-10.2); Carbon Dioxide 27 mmol/L (22-30); Chloride 100 mmol/L (98-107); Glucose 97 mg/dL (74-99); Non-African American GFR(CKD) >90 (>60 ml/min/1.73 sqM); Potassium 3.7 mmol/L (3.5-5.1); Sodium 137 mmol/L (137-145)
[2025-03-09 07:44] VITALS: BP 165/97; PULSE 88; TEMP 98.5
--- NOTE | 2025-03-09 12:13 | P.DS ---
Providers Date of admission: 03/06/25 14:46 Expected date of discharge: 03/09/25 Attending physician: Sebastian Ramon Consults: 03/06/25 14:46 Consult Physician Urgent Consulting Provider: Jose Tinoco Consult Reason/Comments: abscess Do you want consulting provider notified?: Yes Primary care physician: Candelario Mcgee [facility] Course: Discharge diagnosis: Left lower extremity cellulitis Abscess formation in hematoma S/p Incision and drainage 03/07/25 Recent Community acquired pneumonia Transaminitis Hospital Course: Patient is a 59 year old male with no significant past medical history presented to the ED with concern for left leg infection. Patient stated that his symptoms started 2 months ago after sustaining a mechanical fall. He fell over metal pieces. He initially had an abrasion hematoma and negative x-rays at the time. He reports the size of his lesion gradually increased. He he then saw worsening of his symptoms with fluid filled blisters and was placed on topical antibiotics recently. At the time he was also diagnosed with pneumonia as well as ear infection. He was placed on amoxicillin. His leg was wrapped. Today when the wrap was removed he noticed the swelling and bogginess. Associated with that he has puslike drainage. Initial evaluation in the ED showed vitals T 98.2 F, PA 93 bpm, RR 17, BP 154/92, SpO2 97% on room air. Tibia-fibula x-ray shows no acute osseous abnormality, superficial soft tissue swelling anterior mid foreleg. Labs AST 135, ALT 244, ALP 342, CRP 16. At that point patient was started on Vancomycin and Unasyn. Further work up showed CT scan of the lower extremity with contrast showed superficial soft tissue swelling pretibial space, 2 x 5 cm hematoma may contribute to the swelling, abscess can be considered, no suspicious cortical erosion to suggest osteomyelitis. General surgery was consulted and patient had bedside incision and drainage. Cultures were obtained that is growing presumptive Staph aureus. Liver ultrasound shows cholelithiasis, hepatomegaly, CBD within normal limits.Chest x-ray shows no acute pulmonary process. Patient has been optimized for discharge. Patient seen at bedside today and is feeling good and excited about discharge. Patient will be discharged today and is given a script for Bactrim double strength 1 tablet p.o. every 12 hours for 10 days. Patient is given a handout for gallstones, abscess, incision and drainage and is advised to be compliant with medications. Patient is advised to follow-up with PCP in 1-2 days, regrind mill operator in 1 week, general surgeon on 03/16/2025 at 1:50 PM. Vital signs are reviewed and stable General: nontoxic, no distress, appears at stated age Head: atraumatic, normocephalic, symmetric Eyes: EOMI, anicteric sclera Mouth: no lip lesion, mucus membranes moist Cardiovascular: S1 S2 reg, no murmur Lungs: rhonchi bilaterally, no accessory muscle use Abdominal: soft, non-tender to palpation Extremities: large 6 cm swelling on left mcelroy with surrounding erythema encompassing most left lower leg, warm to touch, left lower leg now bandaged Neuro: Alert, Oriented, Gross neurological examination did not reveal any focal deficits. Psych: well appearing, appropriate affect A total of 30 minutes of time were spent preparing this complex discharge summary. Patient was discharged on 03/09/25 at 1003. Dictation was produced using [employer] dictation software. please excuse any grammatical, word or spelling error Magdy Ramos MD PGY-1 IM I have seen and evaluated the patient today. Discussed with the resident and agree with the residents finding and plan as documented in the resident's note. Changes highlighted in blue font. Patient Condition at Discharge: Stable Plan - Discharge Summary Discharge Rx Participant: No New Discharge Prescriptions: New Sulfamethox-Tmp 800-160Mg [Bactrim DS 800-160 mg] 1 tab PO Q12HR 10 Days #20 tab Discharge Medication List Sulfamethox-Tmp 800-160Mg [Bactrim DS 800-160 mg] 1 tab PO Q12HR 10 Days #20 tab 03/09/25 [Rx] Follow up Appointment(s)/Referral(s): Alma Jules MD [STAFF PHYSICIAN] - 1 Week (office not answering Please call to schedule appointment) None,Stated [REFERRING] - 1-2 days Jose Tinoco MD [STAFF PHYSICIAN] - 03/16/25 1:50 pm Patient Instructions/Handouts: Gallstones (GEN), Abscess (GEN), Incision and Drainage (GEN) Activity/Diet/Wound Care/Special Instructions: Please see PCP, surgery and GI doctor. Discharge Disposition: HOME SELF-CARE
--- NOTE | 2025-03-09 13:07 | P.PN ---
Subjective Progress Note Date: 03/09/25 SURGICAL PROGRESS NOTE CHIEF COMPLAINT: Left leg infected hematoma HISTORY OF PRESENT ILLNESS: Patient is postop day #2 status post bedside incision and drainage of infected left leg hematoma. Patient reports that the pain and swelling are improving. The area is still draining. Afebrile. WBC 7.89. Patient denies any abdominal pain. Culture grew MSSA PHYSICAL EXAM: VITAL SIGNS: Reviewed. GENERAL: Well-developed in no acute distress. ABDOMEN: Soft. Nondistended. Nontender. NEUROLOGIC: Alert and oriented. Cranial nerves II through XII grossly intact. Extremities: Left leg decreased erythema. Mild decrease in the swelling of the left leg. No calf tenderness. Serosanguineous drainage noted on dressing ASSESSMENT: 1. Infected left leg hematoma 2. Asymptomatic gallstones PLAN: -Continue antibiotic management per medicine team -No further surgical intervention planned -Okay to discharge from surgical standpoint -Keep leg elevated -DVT prophylaxis Lovenox Physician Mac Artist note has been reviewed by physician. Signing provider agrees with the documented findings, assessment, and plan of care. Objective - Vital Signs Vital signs: Vital Signs Temp 98.5 F 03/09/25 07:01 Pulse 88 03/09/25 07:01 Resp 18 03/09/25 07:01 BP 165/97 03/09/25 07:01 Pulse Ox 98 03/09/25 07:01 FiO2 Intake & Output 03/08/25 03/09/25 03/09/25 18:59 06:59 18:59 Intake Total 250 480 Balance 250 480 Intake: Oral 250 480 Other: Voiding Method Toilet Toilet # Voids 4 3 - Labs CBC & Chem 7: 03/09/25 03:12 03/09/25 03:12 Labs: Abnormal Lab Results - Last 24 Hours (Table) 03/09/25 Range/Units 03:12 Hgb 11.9 L (13.0-17.0) g/dL Hct 37.8 L (39.6-50.0) % MCH 25.3 L (27.0-32.0) pg MCHC 31.5 L (32.0-37.0) g/dL MPV 8.2 L (9.5-12.2) fL Microbiology - Last 24 Hours (Table) 03/07/25 09:15 Gram Stain - Final Leg - Left Wound Culture - Final Staphylococcus aureus 03/06/25 13:28 Blood Culture - Preliminary Blood 03/07/25 10:00 Gram Stain - Preliminary Leg - Left Wound Culture - Preliminary
[2025-03-10] MEDS ORDERED: VANCOMYCIN TROUGH DUE 1 EACH MISC MISCELLANE ONE (07:00)
== END 2025-03-09 14:20 | disposition home or self-care (01) | DRG 602 ==
LOC: EC 12:55 → 4SSUR 14:45 → OBSVTOIN 14:46 → 4SSUR 15:43
PROVIDERS: ADMIT Student in an Organized Health Care Education/Training Program; ATTEND Student in an Organized Health Care Education/Training Program
PROC: 0J9P0ZZ Drainage of Left Lower Leg Subcutaneous Tissue and Fascia, Open Approach (ICD-10-PCS; principal; 2025-03-07)
DX: L03.116 Cellulitis of left lower limb (principal); J18.9 Pneumonia, unspecified organism; S80.12XA Contusion of left lower leg, initial encounter; Z11.52 Encounter for screening for COVID-19; L02.416 Cutaneous abscess of left lower limb; R16.0 Hepatomegaly, not elsewhere classified; R74.01 Elevation of levels of liver transaminase levels; H66.90 Otitis media, unspecified, unspecified ear; B95.61 Methicillin susceptible Staphylococcus aureus infection as the cause of diseases classified elsewhere; K80.20 Calculus of gallbladder without cholecystitis without obstruction; Z87.01 Personal history of pneumonia (recurrent); Z91.81 History of falling
CPT/HCPCS: 36415; 71046; 76705; 80048; 80053; 80202; 83605; 85025; 85027; 86140; 87040; 87070; 87075; 87077; 87186; 87205; 87636; 96365; 96366; 99285